=== PATIENT | female | born 1940 | race Caucasian/White ===

== ENCOUNTER 2016-06-30 14:40 | Emergency (ER) | payer MEDICARE, BC ==
[~2016-06-30] VITALS: Ht 154.9 cm; Wt 63.2 kg
[~2016-06-30 14:40] MED LIST: ARMOUR THYROID15 MG; ASPIRIN 81M81 MG/TA2 PO; BYSTOLIC2.5 MG; PRAVACHOL10 MG; SYNTHROID 0.0.025 MG; UNABLE
[2016-06-30 14:48] VITALS: TEMP 98.5
[2016-06-30] MEDS ORDERED: ZYRTEC 10MG10 MG PO (15:06)
[2016-06-30] MEDS ORDERED: ZANTAC 150MG T150 MG PO (15:07)
[2016-06-30] MEDS ORDERED: ATARAX 10MG10 MG/TAB PO (15:08)
[2016-06-30] MEDS ORDERED: BYSTOLIC5 MG PO (15:13)
[2016-06-30] MEDS ORDERED: PRAVACHOL 40MG40 MG PO (15:14)
[2016-06-30 15:48] LABS: BASO % 0.3 % (0.0-2.0); EOS # 0.2 (0.0-0.7); EOS % 2.1 % (0-4.0); GRAN # 4.7 (1.4-6.5); GRAN % 65.9 % (42.2-75.2); HEMATOCRIT 40.4 % (37.0-47.0); HEMOGLOBIN 13.5 g/dl (12.5-16.0); LYMPH # 1.6 (1.2-3.4); LYMPH % 23.1 % (20.0-51.0); MEAN CELL VOLUME 87 fl (80.0-100.0); MEAN CORPUSCULAR HEMOGLOBIN 29 pg (27.0-31.0); MEAN CORPUSCULAR HGB CONC 33 g/dl (33.0-37.0); MEAN PLATELET VOLUME 11.7 fl (7.4-10.4); MONO # 0.6 (0.1-0.6); MONO % 8.3 % (1.7-9.3); PLATELET COUNT 162 K/mm3 (130-400); RED BLOOD COUNT 4.66 M/mm3 (4.10-5.30); REDCELL DISTRIBUTION WIDTH-CV 14.5 % (11.5-14.5); WHITE BLOOD COUNT 7.1 K/mm3 (4.8-10.8)
[2016-06-30 15:57] LABS: ADJUSTED CALCIUM 9.2 mg/dL (8.4-10.2); ALANINE AMINOTRANSFERASE 24 U/L (9-52); ALBUMIN 3.4 gm/dL (3.5-5.0); ALKALINE PHOSPHATASE 51 U/L (50-136); ANION GAP 8 mmol/L (7-16); BILIRUBIN,TOTAL 0.6 mg/dL (0.0-1.0); BLOOD UREA NITROGEN 16 mg/dL (7-17); CALCIUM 8.7 mg/dL (8.4-10.2); CARBON DIOXIDE 28 mmol/L (22-30); CHLORIDE 105 mmol/L (98-107); CREATININE, serum 0.66 mg/dL (0.52-1.25); GLUCOSE 87 mg/dL (74-106); POTASSIUM 3.9 mmol/L (3.4-5.0); SODIUM 141 mmol/L (137-145); TOTAL PROTEIN 6.2 gm/dL (6.4-8.2)
[2016-06-30 16:10] LABS: TROPONIN-I < 0.012 ng/mL (0.000-0.034)
[2016-06-30 16:48] VITALS: BP 126/65; PULSE 61
== END 2016-06-30 16:54 | disposition home or self-care (01) ==
LOC: COL.ER 14:40
PROVIDERS: Emergency Medicine
DX: I10 Essential (primary) hypertension (principal); Z66 Do not resuscitate

== ENCOUNTER 2016-08-13 09:54 | Outpatient (CLI) | payer MEDICARE, BC ==
[~2016-08-13] VITALS: Ht 154.9 cm; Wt 65.9 kg
[~2016-08-13 09:54] MED LIST changes: +ATARAX 10MG10 MG/TAB PO; +BYSTOLIC5 MG PO; +PRAVACHOL 40MG40 MG PO; +ZANTAC 150MG T150 MG PO; +ZYRTEC 10MG10 MG PO
[2016-08-13 10:42] VITALS: BP 179/80; PULSE 62; TEMP 98
== END 2016-08-13 13:40 | disposition home or self-care (01) ==
LOC: EUO 09:54
DX: L50.1 Idiopathic urticaria (principal)
CPT/HCPCS: J2357

== ENCOUNTER 2016-08-20 19:14 | Emergency (ER) | payer MEDICARE, BC ==
[~2016-08-20] VITALS: Ht 154.9 cm; Wt 63.6 kg
[2016-08-20 19:24] VITALS: TEMP 98.2
[2016-08-20 20:05] LABS: BASO % 0.3 % (0.0-2.0); EOS # 0.1 (0.0-0.7); EOS % 1.9 % (0-4.0); GRAN # 3.8 (1.4-6.5); GRAN % 65.2 % (42.2-75.2); HEMATOCRIT 38.8 % (37.0-47.0); HEMOGLOBIN 12.9 g/dl (12.5-16.0); LYMPH # 1.3 (1.2-3.4); LYMPH % 22.8 % (20.0-51.0); MEAN CELL VOLUME 88 fl (80.0-100.0); MEAN CORPUSCULAR HEMOGLOBIN 29 pg (27.0-31.0); MEAN CORPUSCULAR HGB CONC 33 g/dl (33.0-37.0); MEAN PLATELET VOLUME 12.3 fl (7.4-10.4); MONO # 0.6 (0.1-0.6); MONO % 9.6 % (1.7-9.3); PLATELET COUNT 140 K/mm3 (130-400); RED BLOOD COUNT 4.43 M/mm3 (4.10-5.30); REDCELL DISTRIBUTION WIDTH-CV 13.2 % (11.5-14.5); WHITE BLOOD COUNT 5.8 K/mm3 (4.8-10.8)
[2016-08-20 20:09] LABS: ADJUSTED CALCIUM 9.2 mg/dL (8.4-10.2); ALANINE AMINOTRANSFERASE 24 U/L (9-52); ALBUMIN 3.5 gm/dL (3.5-5.0); ALKALINE PHOSPHATASE 53 U/L (50-136); ANION GAP 10 mmol/L (7-16); BILIRUBIN,TOTAL 0.7 mg/dL (0.0-1.0); BLOOD UREA NITROGEN 16 mg/dL (7-17); CALCIUM 8.8 mg/dL (8.4-10.2); CARBON DIOXIDE 26 mmol/L (22-30); CHLORIDE 105 mmol/L (98-107); CREATININE, serum 0.65 mg/dL (0.52-1.25); GLUCOSE 103 mg/dL (74-106); POTASSIUM 3.8 mmol/L (3.4-5.0); SODIUM 141 mmol/L (137-145); TOTAL PROTEIN 6.2 gm/dL (6.4-8.2)
[2016-08-20 20:28] LABS: TROPONIN-I < 0.012 ng/mL (0.000-0.034)
[2016-08-20 20:57] VITALS: BP 143/80; PULSE 65
== END 2016-08-20 20:58 | disposition home or self-care (01) ==
LOC: COL.ER 19:14
PROVIDERS: Emergency Medicine
DX: I11.0 Hypertensive heart disease with heart failure (principal); E78.5 Hyperlipidemia, unspecified; E03.9 Hypothyroidism, unspecified

== ENCOUNTER 2017-05-07 14:17 | Outpatient (CLI) | payer MEDICARE, BC ==
[~2017-05-07] VITALS: Ht 154.9 cm; Wt 66.6 kg
[2017-05-07] MEDS ORDERED: NORVASC 5MG5 MG/TAB PO (14:35)
[2017-05-07 14:41] VITALS: BP 152/61; PULSE 74; TEMP 97.9
== END 2017-05-07 16:46 | disposition home or self-care (01) ==
LOC: EUO 14:17
DX: M81.0 Age-related osteoporosis without current pathological fracture (principal)
CPT/HCPCS: J3489

== ENCOUNTER → 2017-09-24 | Outpatient (CLI) | payer MEDICARE, BC ==
[~2017-09-24] MED LIST changes: +NORVASC 5MG5 MG/TAB PO
[2017-09-24 12:43] LABS: HIV 1/2 Antibodies Non-Reactive; HIV-1p24 Antigen Non-Reactive
== END ==
LOC: COL.LAB 11:04
PROVIDERS: Orthopaedic Surgery
DX: Z01.812 Encounter for preprocedural laboratory examination (principal); M17.12 Unilateral primary osteoarthritis, left knee

== ENCOUNTER 2017-10-09 14:41 | Outpatient (CLI) | payer MEDICARE, BC ==
[~2017-10-09] VITALS: Ht 154.9 cm; Wt 65.4 kg
[2017-10-09] MEDS ORDERED: VITAMIN C500 MG PO (14:57)
[2017-10-09] MEDS ORDERED: NATURAL IRON65 MG (14:58)
[2017-10-09 15:06] VITALS: BP 135/116; PULSE 72; TEMP 98.2
== END 2017-10-09 16:35 | disposition home or self-care (01) ==
LOC: EUO 14:41
DX: L50.1 Idiopathic urticaria (principal); Z79.899 Other long term (current) drug therapy
CPT/HCPCS: J2357

== ENCOUNTER → 2017-12-26 | Outpatient (REF) ==
[~2017-12-26] MED LIST changes: +NATURAL IRON65 MG; +VITAMIN C500 MG PO
== END ==
LOC: ZMSC 07:12
DX: Z01.89 Encounter for other specified special examinations (principal)

== ENCOUNTER 2018-05-12 10:01 | Outpatient (CLI) | payer MEDICARE, BC ==
[~2018-05-12] VITALS: Ht 154.9 cm; Wt 68.9 kg
[~2018-05-12 10:01] MED LIST changes: -ARMOUR THYROID15 MG; +ARMOUR THYROID15 MG PO
[2018-05-12 10:25] VITALS: BP 149/59; PULSE 67; TEMP 98
--- NOTE | 2018-05-12 10:51 | NUR ---
INT discontinued intact. This is the second Reclast infusion, so did not have to sit for 30 minutes after infusion complete.
== END 2018-05-12 10:52 | disposition home or self-care (01) ==
LOC: EUO 10:01
DX: M81.0 Age-related osteoporosis without current pathological fracture (principal)
CPT/HCPCS: J3489

== ENCOUNTER → 2018-05-26 | Outpatient (CLI) | payer MEDICARE, BC | LOC: MC.RAD 08:21 | DX: Z12.31 Encounter for screening mammogram for malignant neoplasm of breast (principal) ==

== ENCOUNTER → 2019-12-07 | Outpatient (CLI) | payer MEDICARE, BC | LOC: ZCOL.LAB 20:15 | DX: J02.9 Acute pharyngitis, unspecified (principal); Z20.828 Contact with and (suspected) exposure to other viral communicable diseases ==

== ENCOUNTER → 2019-12-23 | Outpatient (CLI) | payer MEDICARE, BC | LOC: MC.RAD 12:44 | DX: Z12.31 Encounter for screening mammogram for malignant neoplasm of breast (principal) ==

== ENCOUNTER 2020-07-10 13:57 | Outpatient (CLI) | payer MEDICARE, BC ==
[~2020-07-10] VITALS: Ht 154.9 cm; Wt 71.5 kg
[2020-07-10 14:59] VITALS: BP 112/82; PULSE 72; TEMP 98
[2020-07-10] MEDS ORDERED: XOLAIR150 MG/1 M SQ (15:04)
== END 2020-07-10 15:00 | disposition home or self-care (01) ==
LOC: EUO 13:57
DX: M81.0 Age-related osteoporosis without current pathological fracture (principal)
CPT/HCPCS: J3489

== ENCOUNTER → 2022-12-10 | Outpatient (CLI) | payer MEDICARE, BC ==
[~2022-12-10] MED LIST changes: +XOLAIR150 MG/1 M SQ
== END ==
LOC: COL.RAD 10:05
DX: H93.8X1 Other specified disorders of right ear (principal); I65.29 Occlusion and stenosis of unspecified carotid artery

== ENCOUNTER → 2023-04-04 | Outpatient (CLI) | payer MEDICARE, BC | LOC: COL.RAD 10:01 | DX: M76.891 Other specified enthesopathies of right lower limb, excluding foot (principal) | CPT/HCPCS: J0665; J3301 ==

== ENCOUNTER 2023-07-10 07:07 | Emergency (ER) | payer MEDICARE, BC ==
[~2023-07-10] VITALS: Ht 152.4 cm; Wt 66.4 kg
[~2023-07-10 07:07] MED LIST changes: +NORCO 325 MG-51 TAB PO
[2023-07-10 07:15] VITALS: TEMP 97.6
[2023-07-10 09:18] VITALS: BP 187/87; PULSE 79
== END 2023-07-10 09:18 | disposition home or self-care (01) ==
LOC: COL.ER 07:07
DX: K59.00 Constipation, unspecified (principal)